=== PATIENT | female | born 1995 | race Asian ===

== ENCOUNTER 2016-06-30 11:32 | Emergency (ER) | payer OTHER ==
[~2016-06-30] VITALS: Ht 160 cm; Wt 50.0 kg
[2016-06-30 11:41] VITALS: TEMP 36.5; Ht 160 cm; Wt 50.0 kg
[2016-06-30] MEDS ORDERED: ACETAMINOPHEN 500 MG TAB PO STA (12:40)
--- NOTE | 2016-06-30 13:39 | DIAGNOSTIC IMAGING REPORT ---
HEAD CT NONCONTRAST CT DOSE: 823.94 mGycm HISTORY: head injury TECHNIQUE: Multiaxial CT images of the head were performed without the use of intravenous contrast. Automated exposure control was utilized for this study. Comparison: None. Findings: The paranasal sinuses and mastoid air cells are clear. The calvarium and skull base are intact. The ventricles and sulci are within normal limits. There is no mass, hematoma, midline shift, or acute infarct. Impression: No acute intracranial abnormality. Electronically signed by: Dae Cohen M.D. 06/30/2016 1:38 PM Dictated Date/Time: 06/30/2016 1:27 PM
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
[2016-06-30 14:52] VITALS: BP 123/79; PULSE 87; O2SAT 95
== END 2016-06-30 14:53 | disposition home or self-care (01) ==
LOC: EDBD 11:32 → C.EDD 11:35
DX: S00.83XA Contusion of other part of head, initial encounter (principal); S89.92XA Unspecified injury of left lower leg, initial encounter; V09.20XA Pedestrian injured in traffic accident involving unspecified motor vehicles, initial encounter; Y92.414 Local residential or business street as the place of occurrence of the external cause